=== PATIENT | male | born 1980 | race Caucasian/White ===

== ENCOUNTER → 2018-11-18 | Outpatient (CLI) | payer BC | LOC: RAD 16:19 | DX: K21.9 Gastro-esophageal reflux disease without esophagitis (principal); M79.601 Pain in right arm; M43.6 Torticollis; M54.5 Low back pain; Z72.0 Tobacco use ==

== ENCOUNTER 2019-06-07 09:04 | Emergency (ER) | payer BC ==
[~2019-06-07] VITALS: Ht 175.3 cm; Wt 79.5 kg
[2019-06-07 09:43] LABS: EOS # 0.2 (0.04-0.40); EOS % 1.3 % (0.0-4.0); HEMATOCRIT 43.7 % (42.0-52.0); LYMPH# 2.3 (1.50-4.00); MEAN CELL VOLUME 91 fl (78-100); MEAN CORPUSCULAR HEMOGLOBIN 31 pg (27-31); MEAN CORPUSCULAR HGB CONC 34 g/dL (33-37); MEAN PLATELET VOLUME 9.1 fl (7.4-10.4); MONO # 0.9 (0.20-0.80); PLATELET COUNT 361 K/mm3 (130-400); RED BLOOD COUNT 4.79 M/mm3 (4.20-5.60); RED CELL DISTRIBUTION WIDTH 12.7 % (11.5-14.5); WHITE BLOOD COUNT 13.5 K/mm3 (4.8-10.8)
[2019-06-07 09:47] LABS: ALBUMIN 4.8 g/dL (3.5-5.0); POTASSIUM 4.4 mmol/L (3.5-5.1); SODIUM 139 mmol/L (136-145)
[2019-06-07 09:49] LABS: GLUCOSE 130 mg/dL (75-110)
[2019-06-07 09:50] LABS: TOTAL PROTEIN 7.8 g/dL (6.4-8.3)
[2019-06-07 09:51] LABS: CARBON DIOXIDE 18 mmol/L (22-29); TOTAL BILIRUBIN 0.4 mg/dL (0.2-1.2)
[2019-06-07 09:55] LABS: AST-SGOT 24 U/L (5-34); NEU # 10.1 (1.40-6.50)
[2019-06-07 09:56] LABS: ALT/SGPT 53 U/L (0-55)
[2019-06-07] MEDS ORDERED: TYLENOL EXTRA500 M2 PO (09:59)
[2019-06-07 10:04] LABS: TROPONIN-I < 0.03 ng/mL (<0.030)
[2019-06-07] MEDS ORDERED: TOPROL XL 50MG50 MG PO (11:06)
[2019-06-07 12:03] VITALS: BP 136/68
== END 2019-06-07 12:04 | disposition home or self-care (01) ==
LOC: ED 09:04
PROVIDERS: Nurse Practitioner Family
DX: I47.1 Supraventricular tachycardia (principal); F41.9 Anxiety disorder, unspecified; F32.9 Major depressive disorder, single episode, unspecified
CPT/HCPCS: J7030